=== PATIENT | female | born 1970 | race Caucasian/White ===

== ENCOUNTER 2016-07-04 10:16 | Day surgery (SDC) | payer OTHER ==
[2016-07-04] MEDS ORDERED: LIDOCAINE 2% MDV (20MG/ML) 20ML VIAL IV ONE (14:00)
[2016-07-04] MEDS ORDERED: FENTANYL PF 100MCG/2ML VIAL IV ONE (14:00)
[2016-07-04] MEDS ORDERED: PROPOFOL 10 MG/ML VIAL IV ONE (14:00)
--- NOTE | 2016-07-05 15:51 | Operative Note ---
DATE OF SURGERY: 07/04/2016 REFERRING PROVIDER: Jenny Zamarripa DO PREOPERATIVE DIAGNOSIS: Dyspepsia and heartburn. POSTOPERATIVE DIAGNOSIS: Includes nonerosive gastritis. OPERATION: ESOPHAGOGASTRODUODENOSCOPY with biopsy. PROCEDURE: After informed consent was obtained, the patient was placed in the left lateral decubitus position in the endoscopy suite, sedated and monitored by the Department of Anesthesia. Once sedated, a well-lubricated XVK115 gastroscope was placed in the posterior oropharynx and under direct visualization passed to the proximal esophagus. The endoscope was advanced to the proximal, mid and distal esophagus. The esophagus and GE junction were unremarkable. The gastric body demonstrated normal distensibility, normal rugal folds. The body revealed mild patchy erythema. The antrum was unremarkable. The duodenal bulb and sweep were unremarkable. J-turn views of the proximal stomach revealed mild erythema. The endoscope was then straightened. Gastric biopsies were obtained for histology. The endoscopy was removed from the patient with no new findings noted. RECOMMENDATIONS: Given the patient's improvement with her current medical problem, I would recommend she continue her PPI as currently taken. Further recommendations based on tissue histology. As always, thank you for allowing me to participate in the health care of your patients. Marco Herring DO CC: Jenny Zamarripa DO [facility]
== END 2016-07-04 12:22 | disposition home or self-care (01) ==
LOC: HOP 10:16
PROVIDERS: ATTEND Internal Medicine Gastroenterology
DX: K29.50 Unspecified chronic gastritis without bleeding (principal); B96.81 Helicobacter pylori [H. pylori] as the cause of diseases classified elsewhere; E03.9 Hypothyroidism, unspecified
CPT/HCPCS: 43239; 00740; J3010